=== PATIENT | male | born 1945 | race Caucasian/White ===

== ENCOUNTER → 2017-07-25 | Outpatient (CLI) | payer MEDICARE, BC | END | disposition home or self-care (01) | LOC: GMAB 10:15 | PROVIDERS: ATTEND Family Medicine | DX: E29.9 Testicular dysfunction, unspecified (principal); R94.6 Abnormal results of thyroid function studies ==

== ENCOUNTER 2019-10-14 12:09 | Emergency (ER) | payer MEDICARE, BC ==
[2019-10-14] MEDS ORDERED: SODIUM CHLORIDE 0.9% (FLUSH) 10 ML SYG IV PRN (13:01)
--- NOTE | 2019-10-14 13:06 | ED.PDOC ---
History of Present Illness - General Chief Complaint: Cardiovascular Problem Stated Complaint: dizziness,low heart rate Time Seen by Provider: 10/14/19 13:01 Source: patient, RN notes reviewed, Vital Signs reviewed Exam Limitations: no limitations - History of Present Illness Initial Comments: Patient is a 73-year-old white male who was sent from the [facility] for a low heart rate. When he arrived to the clinic due to dizziness, they were checking his pulse ox and noted that he had a heart rate of 29. On arrival here, on the monitor his heart rate is in the mid 50s. He does have frequent PVCs. Patient states that he started feeling dizzy this morning. He defines dizzy as lightheaded. The room is not spinning around. Nothing seems to make the dizziness better or worse. He does not know what is causing the dizziness. Patient denies any blurry vision, headache, chest pain, shortness of breath, nausea, vomiting, diarrhea. Patient denies any paresthesias or weakness. This dizziness is constant. Timing/Duration: 7-24 hours Severity: moderate Location: other - No chest pain Activities at Onset: none Prior Chest Pain/Cardiac Workup: other - Patient has had an ablation done in the past due to atrial fibrillation. Improving Factors: nothing Worsening Factors: nothing Nitro Today/Relief: no nitro taken today Aspirin Treatment Today: no aspirin today Associated Symptoms: denies symptoms Allergies/Adverse Reactions: Allergies NO KNOWN ALLERGY Allergy (Verified 10/14/19 12:26) Home Medications: Ambulatory Orders Propafenone HCl 225 mg PO TID 10/14/19 Rivaroxaban [Xarelto] 20 mg PO DAILY 10/14/19 Review of Systems - Review of Systems Constitutional: States: no symptoms reported, see HPI. Denies: chills, fever EENTM: States: see HPI, other - Dizziness.. Denies: blurred vision, double vision Respiratory: States: no symptoms reported. Denies: cough, short of breath, stridor Cardiology: States: no symptoms reported, see HPI. Denies: chest pain, palpitations, syncope Gastrointestinal/Abdominal: States: no symptoms reported. Denies: abdominal pain, nausea, vomiting Genitourinary: States: no symptoms reported. Denies: discharge, dysuria, frequency Musculoskeletal: States: no symptoms reported. Denies: back pain, joint pain, joint swelling, muscle pain, muscle stiffness Skin: States: no symptoms reported. Denies: change in color, rash Neurological: States: see HPI, other - Dizziness and lightheadedness.. Denies: headache, paresthesia, seizure, tingling, tremors Endocrine: States: no symptoms reported. Denies: excessive sweating, increased hunger, increased thirst, increased urine Past Medical History (General) - Patient Medical History Hx Stroke: No Hx Cardiac Disorders: Yes Hx Congestive Heart Failure: No Hx Diabetes: No - Vaccination History Hx Influenza Vaccination: No Hx Pneumococcal Vaccination: Yes - Social History Hx Tobacco Use: Yes Family Medical History - Family History Father Family History: Unknown Living Status: Unknown Physical Exam - Physical Exam General Appearance: Alert, Comfortable, No apparent distress, Well Developed, Well Groomed, Well Hydrated, Well Nourished Eyes, Ears, Nose, Throat Exam: PERRL/EOMI, normal ENT inspection, pharynx normal Neck: non-tender, full range of motion, supple, normal inspection Respiratory: chest non-tender, lungs clear, normal breath sounds, no respiratory distress, no accessory muscle use Cardiovascular/Chest: normal peripheral pulses, no edema, no gallop, no JVD, no murmur, bradycardia, other - Patient with frequent nonconducting PVCs. 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 10/14/19 13:59 Patient's labs are relatively unremarkable. He continues to have frequent nonconducting PVC heartbeats. I suspect these PVCs are causing him to have this symptomatic bradycardia. He is been on his current doses of Rythmol and metoprolol for the last 4 years. Will contact his coldfusion, Dr. Mays, for consultation. I discussed this plan of care with the patient and his and they voiced understanding and agreement. 10/14/19 15:08 Just had a conversation with the on-call coldfusion for Dr. Mays and he recommends discontinuing the beta-renetta and seeing the patient in his office in 1 to 2 days. I discussed this plan of care with the patient and he voices agreement and understanding of the plan of care. Patient's vital signs are stable, systolic blood pressures in the 150s and diastolic blood pressures of 60s. Heart rate has consistently been in the mid 50s. Patient is still having frequent PVCs but his dizziness has resolved. Viral Neville M.D. #[id number] - Results/Orders Results/Orders: 10/14/19 13:01 Sodium Chloride 0.9% (Flush) [Saline Flush Syringe] 3 ml IV PRN PRN 10/14/19 13:15 EKG STAT 10/15/19 09:00 Pulse Ox Daily Laboratory Results - last 24 hr 10/14/19 10/14/19 12:20 13:28 WBC 12.1 H RBC 4.85 Hgb 14.9 Hct 44.1 MCV 90.9 MCH 30.8 MCHC 33.9 RDW 13.2 Plt Count 142 MPV 10.9 H Absolute Neuts (auto) 7.50 H Absolute Lymphs (auto) 3.60 H Absolute Monos (auto) 0.80 Absolute Eos (auto) 0.20 Absolute Basos (auto) 0.10 Neutrophils % 62.1 Lymphocytes % 29.3 Monocytes % 6.7 Eosinophils % 1.3 Basophils % 0.6 PT 10.4 INR 1.05 PTT (SP) 25.2 Sodium 138 Potassium 4.0 Chloride 102 Carbon Dioxide 26 Anion Gap 14.0 BUN 16 Creatinine 1.11 BUN/Creatinine Ratio 14.4 Random Glucose 97 Serum Osmolality 276.8 Calcium 9.3 Magnesium 2.1 Total Bilirubin 0.9 Direct Bilirubin 0.1 Indirect Bilirubin 0.8 AST 21 ALT 20 Alkaline Phosphatase 40 L Creatine Kinase 159 CK-MB (CK-2) 4.1 CK-MB (CK-2) % Not Reportable Troponin I < 0.02 B-Natriuretic Peptide 232.0 H* Serum Total Protein 7.2 Albumin 4.1 Urine Color Yellow Urine Appearance Clear Urine pH 6.0 Ur Specific [place] 1.015 Urine Protein Negative Urine Glucose (UA) Negative Urine Ketones Negative Urine Blood Trace-lysed H Urine Nitrite Negative Urine Bilirubin Negative Urine Urobilinogen 0.2 Ur Leukocyte Esterase Negative Urine RBC 0 Urine WBC 0 Ur Epithelial Cells 0 Urine Bacteria 0 EKG performed 14 October 2019 at 1208 hrs.: Sinus bradycardia at 59 bpm with frequent PVCs. Nonspecific T wave abnormalities. Abnormal EKG. There is no previous EKG for comparison available. Study: Single Frontal Radiograph of the Chest. Indication:dizziness Comparison: None. Impression: Median sternotomy wires. Mild cardiomegaly without failure. Lungs clear. No acute osseous abnormality. Electronically signed by: Lalit Virk MD 10/14/2019 1:38 PM [employer] Departure - Departure Clinical Impression: Dizziness, Frequent PVCs, Symptomatic PVCs Time of Disposition: 15:16 Disposition: Discharge to Home or Self Care Condition: Good Departure Forms: ED Discharge - Pt. Copy, Patient Portal Self Enrollment Instructions: Palpitations (DC), Ventricular Premature Beats Referrals: Travis Thacker MD [Primary Care Provider] - 1-5 Days Home Medications: Ambulatory Orders Propafenone HCl 225 mg PO TID 10/14/19 Rivaroxaban [Xarelto] 20 mg PO DAILY 10/14/19 Additional Instructions: Discontinue the use of metoprolol per your coldfusion. Follow-up with your coldfusion in 2 days.
--- NOTE | 2019-10-14 13:39 | RAD ---
Study: Single Frontal Radiograph of the Chest. Indication:dizziness Comparison: None. Impression: Median sternotomy wires. Mild cardiomegaly without failure. Lungs clear. No acute osseous abnormality. Electronically signed by: Lalit Virk MD 10/14/2019 1:38 PM SUPERVISING DEPUTY
[2019-10-14 15:23] VITALS: BP 157/57; TEMP 96.8; O2SAT 96
== END 2019-10-14 15:23 | disposition home or self-care (01) ==
LOC: ER 12:09
DX: I49.3 Ventricular premature depolarization (principal); R42 Dizziness and giddiness; R00.1 Bradycardia, unspecified; I51.9 Heart disease, unspecified; Z87.891 Personal history of nicotine dependence; Z79.899 Other long term (current) drug therapy

== ENCOUNTER → 2019-12-23 | Outpatient (CLI) | payer MEDICARE, BC | LOC: GMAE 11:24 | PROVIDERS: ATTEND Family Medicine | DX: Z12.5 Encounter for screening for malignant neoplasm of prostate (principal); I10 Essential (primary) hypertension | CPT/HCPCS: 84443; G0103 ==

== ENCOUNTER 2020-01-08 05:23 | Day surgery (SDC) | payer MEDICARE, BC ==
[2020-01-08] MEDS ORDERED: LACTATED RINGERS 1,000 ML ONE (06:46)
[2020-01-08] MEDS ORDERED: PROPOFOL 200 MG/20 ML VIAL IV ONE (07:00)
[2020-01-08] MEDS ORDERED: DEXAMETHASONE INJ 10 MG/ML VIAL ONE (07:00)
[2020-01-08] MEDS ORDERED: LIDOCAINE 1% 10 ML VIAL INJ ONE (07:00)
[2020-01-08] MEDS ORDERED: FAMOTIDINE 10 MG/ML ML IV ONE (07:00)
[2020-01-08] MEDS ORDERED: diphenhydrAMINE HCL 50 MG/ML VIAL ONE (07:00)
[2020-01-08] MEDS ORDERED: KETOROLAC TROMETHAMINE INJ 30 MG/ML VIAL ONE (07:00)
[2020-01-08] MEDS ORDERED: MAGNESIUM SULFATE INJ 1 GM/2 ML VIAL ONE (07:00)
[2020-01-08] MEDS ORDERED: BUPIVACAINE 0.5% W/EPI 30 ML VIAL INJ ONE (08:13)
[2020-01-08] MEDS ORDERED: SODIUM CHL 0.9% 100ML MINI-BAG 100 ML IVPB ONE (08:46)
[2020-01-08] MEDS ORDERED: ceFAZolin SODIUM 1 GM VIAL ONE (08:46)
[2020-01-08] MEDS ORDERED: BUPIVACAINE LIPOSOME 13.3 MG/ML VIAL INJ ONE (08:49)
[2020-01-08] MEDS ORDERED: DEXMEDETOMIDINE HCL 200 MCG/2 ML INJ IV ONE (08:52)
[2020-01-08] MEDS ORDERED: MIDAZOLAM INJ 2 MG/2 ML VIAL ONE (08:52)
[2020-01-08] MEDS ORDERED: KETAMINE HCL 100 MG/ML VIAL ONE (08:52)
[2020-01-08] MEDS: BUPIVACAINE 0.5% W/EPI 30 ML VIAL INJ ONE ×2 (08:53)
[2020-01-08] MEDS: BUPIVACAINE LIPOSOME 13.3 MG/ML VIAL INJ ONE (08:53)
[2020-01-08] MEDS ORDERED: fentaNYL CITRATE INJ 50 MCG/ML 2 ML AMP ONE (08:53)
[2020-01-08] MEDS ORDERED: BUPIVACAINE 0.5% 30 ML VIAL INJ ONE (09:18)
[2020-01-08] MEDS: LACTATED RINGERS 400 ML IVS ONE (10:09)
--- NOTE | 2020-01-08 10:18 | OP ---
DATE OF PROCEDURE: 01/08/20 PREOPERATIVE DIAGNOSIS: 1. Left inguinal hernia. POSTOPERATIVE DIAGNOSIS: 1. Left inguinal hernia. PROCEDURE: 1. Repair of left inguinal hernia with large PHS mesh. 2. 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 3. Left ilioinguinal nerve block for postoperative pain control. SURGEON: Gabriele Charles MD. ANESTHESIA: General and local. 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 COMPLICATIONS: None. ESTIMATED BLOOD LOSS: None. CONDITION: Stable. PLAN: Discharge. INDICATION: As stated. PROCEDURE: General anesthesia was induced. He was prepped and draped in sterile fashion. 0.5% Marcaine with epinephrine was used. Ilioinguinal nerve block was performed with 3 cc of the 0.5% Marcaine injected based on anatomic landmarks. The incision was then injected as well. The incision was made. Subcutaneous tissue was taken down. Subcutaneous vessels were cauterized and ligated. The external oblique aponeurosis was identified. A small ronnell was made. It was opened along its fibers. The large, bulky hernia was dissected out completely. The bulk of it was a retroperitoneal tumor coming through the internal ring. This was highly ligated after it was completely dissected. The moderate inguinal hernia was identified. The indirect hernia was from the cord structures and reduced. We then used [employer] to keep the epigastric vessel anterior and dissected out the preperitoneal plane with finger sweeps and a few moist Raytecs, which were then removed. Once we had adequate dissection, a large PHS mesh was placed in the preperitoneal plane, nice and flat externally. A ronnell was made, wrapped around the cord, non-stricturing and secured to the shelving edge. It was then secured to the tubercle as well, lightly. More local was placed here. It was then laid out laterally underneath the external oblique aponeurosis. The ilioinguinal nerve, which had been identified and kept out of harm's way, was now superior and kept out of the closure of the external oblique, which was done with a running 2-0 Vicryl. Everything looked good. More local was placed. The wound was then closed in two additional layers with absorbable suture. Dressings were applied. The patient was awakened and taken to Recovery to be discharged. #[id number] cc: Maryann Hoskins MD MTDD
[2020-01-08 10:58] VITALS: BP 140/68; TEMP 98.5; O2SAT 100
== END 2020-01-08 11:25 | disposition home or self-care (01) ==
LOC: AMB 05:23
PROVIDERS: ATTEND Surgery
DX: K40.90 Unilateral inguinal hernia, without obstruction or gangrene, not specified as recurrent (principal); I10 Essential (primary) hypertension; Z79.01 Long term (current) use of anticoagulants
CPT/HCPCS: 00830; 49505; 88304; J0690; J1100; J1200; J1885; J2250; J3010; J3475; J3490; J7050; J7120

== ENCOUNTER 2020-01-30 05:41 | Day surgery (SDC) | payer MEDICARE, BC ==
[2020-01-30] MEDS ORDERED: LACTATED RINGERS 1,000 ML ONE (06:32)
[2020-01-30] MEDS ORDERED: PROPOFOL 200 MG/20 ML VIAL IV ONE (07:00)
[2020-01-30] MEDS ORDERED: LIDOCAINE 1% 10 ML VIAL INJ ONE (07:00)
--- NOTE | 2020-01-30 08:57 | OP ---
DATE OF PROCEDURE: 01/30/20 PREOPERATIVE DIAGNOSIS: 1. Screening. POSTOPERATIVE DIAGNOSIS: 1. Normal colon. PROCEDURE: 1. Colonoscopy. SURGEON: Gabriele Charles MD ANESTHESIA: General. FINDINGS: Normal colon. PROCEDURE: General anesthesia was induced in the lateral position. Digital rectal exam was normal. The colonoscope was inserted without difficulty and routinely passed to the cecum as identified by the appendiceal orifice and ileocecal valve. The prep was adequate requiring minimal irrigation. Upon careful withdrawal, no significant polyps were seen. There was some mild diverticulosis in the sigmoid colon, but the entire exam was normal with no polyps. RECOMMENDATION: Screening colonoscopy in ten years. Followup as needed. #[id number] cc: Maryann Hoskins MD MTDD
[2020-01-30 09:35] VITALS: BP 132/51; TEMP 96; O2SAT 98
== END 2020-01-30 09:25 | disposition home or self-care (01) ==
LOC: AMB 05:41
PROVIDERS: ATTEND Surgery
DX: Z12.11 Encounter for screening for malignant neoplasm of colon (principal); I10 Essential (primary) hypertension; E78.00 Pure hypercholesterolemia, unspecified; Z79.899 Other long term (current) drug therapy; Z79.01 Long term (current) use of anticoagulants
CPT/HCPCS: 00812; 45378; J3490; J7120